=== PATIENT | male | born 1990 | race Caucasian/White ===

== ENCOUNTER → 2016-05-25 | Outpatient (CLI) | payer OTHER ==
--- NOTE | 2016-05-25 12:58 | RAD ---
Indication injury. Pain. AP oblique and lateral views of the left elbow were obtained. No bony abnormality is seen
== END | disposition home or self-care (01) ==
LOC: DXRADRC 10:20
PROVIDERS: ATTEND General Practice
DX: S50.02XA Contusion of left elbow, initial encounter (principal); X58.XXXA Exposure to other specified factors, initial encounter; Y93.89 Activity, other specified; Y92.89 Other specified places as the place of occurrence of the external cause; Y99.8 Other external cause status
CPT/HCPCS: 73080

== ENCOUNTER → 2017-07-27 | Outpatient (CLI) | payer OTHER ==
--- NOTE | 2017-07-27 09:37 | RAD ---
Chest, 2 views, 07/27/2017: HISTORY: Fever and cough The heart size is normal. There is moderate right parahilar infiltrate extending into the upper lobe. The left lung is clear. There is no evidence of pleural fluid. IMPRESSION: Moderate right upper lobe infiltrate suggesting pneumonia. Electronically signed by: Yeison Keenan MD (07/27/2017 9:34 AM) [facility]
== END | disposition home or self-care (01) ==
LOC: PMG 09:18
PROVIDERS: ATTEND Physician Assistant Medical
DX: R91.8 Other nonspecific abnormal finding of lung field (principal)
CPT/HCPCS: 71046

== ENCOUNTER → 2018-04-26 | Outpatient (CLI) | payer BC, OTHER ==
--- NOTE | 2018-04-26 15:39 | RAD ---
Indication: Abdominal pain for one week TECHNIQUE: Multiple AP views of the abdomen and pelvis COMPARISON: None FINDINGS: Visualized lung bases are clear. The contours of the solid abdominal organs are within normal limits. No abnormally dilated bowel loops or air-fluid levels. No abnormal calcific densities projecting over the kidneys to suggest apparent renal stones. No suspicious bony lesion. No significant colonic stool burden. IMPRESSION: No acute findings. Electronically signed by: Olman Holland DO (04/26/2018 3:36 PM) [facility]
== END | disposition home or self-care (01) ==
LOC: RAD 11:02
PROVIDERS: ATTEND Physician Assistant
DX: R10.9 Unspecified abdominal pain (principal)
CPT/HCPCS: 74021

== ENCOUNTER → 2018-12-02 | Outpatient (CLI) | payer BC ==
--- NOTE | 2018-12-02 15:27 | RAD ---
EXAM: Left foot, 3 views. HISTORY: Lateral pain. COMPARISON: None. FINDINGS: 3 views of the left foot are obtained. There is no fracture, dislocation or subluxation. There is a suspected bone island within the distal aspect of the first proximal phalanx. IMPRESSION: No acute osseous finding. Electronically signed by: Renea Fernandez MD (12/02/2018 3:24 PM) [facility]
== END | disposition home or self-care (01) ==
LOC: DRLUCOB 13:18
PROVIDERS: ATTEND Nurse Practitioner Family
DX: M79.672 Pain in left foot (principal)
CPT/HCPCS: 73630

== ENCOUNTER 2020-03-11 14:06 | Emergency (ER) | payer BC, OTHER ==
[~2020-03-11] VITALS: Ht 182.9 cm; Wt 98.0 kg
[2020-03-11 14:18] VITALS: BP 151/84
--- NOTE | 2020-03-11 14:41 | PHYS DOC ---
Past History Past Medical History: No Pertinent History (KARIME MACIAS APRN) Alcohol Use: Heavy (KARIME MACIAS APRN) General Adult EDM: Chief Complaint: FOOT INJURY PAIN HPI: HPI: Patient is a male who presents with left foot pain. Patient states "I stepped off a pruitt at work, and I immediately had pain in my left foot". Patient denies any known injury. Patient is able to ambulate. Patient states that he took ibuprofen this morning before work is not taking anything since the injury occurred. Denies any health history. (KARIME MACIAS APRN) Review of Systems: Review of Systems: Respiratory: Denies cough or shortness of breath Cardiovascular: Denies chest pain or edema Musculoskeletal: Denies back pain or joint pain Integument: Denies rash Psychiatric: Denies depression or anxiety (KARIME MACIAS APRN) Allergies: Allergies: Allergies Coded Allergies Type Severity Reaction Last Updated Verified No Known Drug Allergies 03/11/20 No (KARIME MACIAS APRN) Physical Exam: PE: Constitutional: Well developed, well nourished, no acute distress, non-toxic appearance. [] Cardiovascular:Heart rate regular rhythm, no murmur [ Lungs & Thorax: Bilateral breath sounds clear to auscultation [] Skin: Warm, dry, no erythema, no rash. [] Back: No tenderness, no CVA tenderness. [] Extremities: Left heel tenderness, ROM intact, no edema. [] Psychologic: Affect normal, judgement normal, mood normal. [] (KARIME MACIAS APRN) Current Patient Data: Vital Signs: Vital Signs Date Time Temp Pulse Resp B/P (MAP) Pulse Ox O2 Delivery O2 Flow Rate FiO2 03/11/20 14:18 97.6 93 16 151/84 (106) 98 Room Air (KARIME MACIAS APRN) EKG: EKG: [] (KARIME MACIAS APRN) Radiology/Procedures: Radiology/Procedures: [] (KARIME MACIAS APRN) Heart Score: Risk Factors: Risk Factors: DM, Current or recent (<one month) smoker, HTN, HLP, family history of CAD, obesity. Risk Scores: Score 0 - 3: 2.5% MACE over next 6 weeks - Discharge Home Score 4 - 6: 20.3% MACE over next 6 weeks - Admit for Clinical Observation Score 7 - 10: 72.7% MACE over next 6 weeks - Early Invasive Strategies (KARIME MACIAS APRN) Course & Med Decision Making: Course & Med Decision Making Pertinent Labs and Imaging studies reviewed. (See chart for details) []Patient is a male who presents with left foot pain. Patient states "I stepped off a pruitt at work, and I immediately had pain in my left foot". Patient denies any known injury. Patient is able to ambulate. Patient states that he took ibuprofen this morning before work is not taking anything since the injury occurred. Denies any health history. X-ray of left foot ordered. Tenderness is to patient's heel. No swelling noted. Patient has full range of motion. Patient ambulated into the emergency room. Patient denies any known injury. Patient requesting ibuprofen for pain control. Straight foot is negative for fracture. Will have patient rest, elevate, ice and apply an jim bandage to ankle for support. Ibuprofen and Tylenol at home for pain. (KARIME MACIAS APRN) Dragon Disclaimer: Ethan Disclaimer: This electronic medical record was generated, in whole or in part, using a voice recognition dictation system. (KARIME MACIAS APRN) Departure Departure: Impression: Primary Impression: Foot pain Qualified Codes: M79.672 - Pain in left foot Disposition: 01 DC HOME SELF CARE/HOMELESS Condition: GOOD Referrals: BERTHA MCDANIEL (PCP) Patient Instructions: Foot Contusion Additional Instructions: You are seen in the emergency room today for left foot pain. X-ray was negative for fracture. You can apply ice, Jim wrap, elevate and rest at home. Please take ibuprofen and Tylenol at home for discomfort. Please return to the emergency room for worsening symptoms or concerns. Otherwise follow-up with your primary care physician if symptoms do not resolve. EMERGENCY DEPARTMENT GENERAL DISCHARGE INSTRUCTIONS Thank you for coming to [facility] (ED) today and trusting us with you care. We trust that you had a positivie experience in our Emergency Department. If you wish to speak to the department management, you may call the director at [phone]. YOUR FOLLOW UP INSTRUCTIONS ARE FOLLOWS: 1. Do you have a private Doctor? If you do not have a private doctor, please ask for a resource list of physicians or clinics that may be able to assist you with follow up care. 2. The Emergency Physician has interpreted your x-rays. The X-Ray specialist will also review them. If there is a change in the findings, you will be notified in 48 hours when at all possible. 3. A lab test or culture has been done, your results will be reviewed and you will be notified if you need a change in treatment. ADDITIONAL INSTRUCTIONS AND INFORMATION: 1. Your care today has been supervised by a physician who is specially trained in emergency care. Many problems require more than one evaluation for a complete diagnosis and treatment. We recommend that you schedule your follow up appointment as recommended to ensure complete treatment of you illness or injury. If you are unable to obtain follow up care and continue to have a problem, or if your condition worsens, we recommend that you return to the ED. 2. We are not able to safely determine your condition over the phone nor are we able to give sound medical advice over the phone. For these safety reasons, if you call for medical advice we will ask you to come to the ED for further evaluation. 3. If you have any questions regarding these discharge instructions please call the ED at [phone]. SAFETY INFORMATION: In the interest of safety, wellness, and injury prevention; we encourage you to wear your sealbelt, if you smoke; quite smoking, and we encourage family to use a protective helmet for bicycling and other sporting events that present an increased risk for head injury. IF YOUR SYMPTOMS WORSEN OR NEW SYMPTOMS DEVELOP, OR YOU HAVE CONCERNS ABOUT YOUR CONDITION; OR IF YOUR CONDITION WORSENS WHILE YOU ARE WAITING FOR YOUR FOLLOW UP APPOINTMENT; EITHER CONTACT YOUR PRIMARY CARE DOCTOR, THE PHYSICIAN WHOSE NAME AND NUMBER YOU WERE GIVEN, OR RETURN TO THE ED IMMEDIATELY. Attending Signature Attending Signature I have reviewed the PA/SHREDDING MACHINE TENDER's note and plan of care. I was available for consul tation as needed during the patient's visit in the emergency department. I agree with the clinical impression, plan, and disposition. (LENA RIVERA DO) KARIME MACIAS APRN Mar 11, 2020 14:41 LENA RIVERA DO Mar 12, 2020 00:29
[2020-03-11] MEDS ORDERED: IBUPROFEN 600 MG TABLET. PO ONE (14:45)
--- NOTE | 2020-03-11 15:23 | RAD ---
XR FOOT_LEFT 3 VIEWS DATE: 03/11/2020 2:40 PM INDICATION: Reason: pain / Spl. Instructions: / History: COMPARISON: None. FINDINGS: Bones: There is no evidence of acute fracture or dislocation. Joints: The joint spaces are normal. Miscellaneous: None. IMPRESSION: No evidence of acute fracture. Electronically signed by: Boris Holloway MD (03/11/2020 3:21 PM) [facility]
== END 2020-03-11 15:27 | disposition home or self-care (01) ==
LOC: ER 14:06
DX: M79.672 Pain in left foot (principal); F10.20 Alcohol dependence, uncomplicated; Y90.9 Presence of alcohol in blood, level not specified; X58.XXXA Exposure to other specified factors, initial encounter; Y93.89 Activity, other specified; Y92.89 Other specified places as the place of occurrence of the external cause; Y99.8 Other external cause status
CPT/HCPCS: 73630; 99283

== ENCOUNTER 2020-04-11 16:49 | Emergency (ER) | payer OTHER ==
[~2020-04-11] VITALS: Ht 182.9 cm; Wt 100.0 kg
[2020-04-11 16:49] VITALS: BP 147/76
[2020-04-11] MEDS ORDERED: NAPROXEN 500 MG TABLET PO ONE (17:00)
[2020-04-11] MEDS ORDERED: HYDROcodone/APAP 5/325MG 1 TAB TABLET PO ONE (17:00)
--- NOTE | 2020-04-11 17:15 | RAD ---
Exam: Right ankle 3 views INDICATION: Rolled ankle pain TECHNIQUE: Frontal, lateral and oblique views of the right Comparisons: None FINDINGS: Soft tissue swelling along the anterior aspect of the ankle. Bone mineralization is normal. No acute or healed fractures. Joint spaces are well-maintained. IMPRESSION: Soft tissue swelling at the anterior ankle without underlying osseous abnormality. Electronically signed by: Justyna Quinonez MD (04/11/2020 5:13 PM) [facility]
[2020-04-11] MEDS ORDERED: NAPR-514 PO (17:36)
[2020-04-11] MEDS ORDERED: HYDR-2759 PO (17:36)
--- NOTE | 2020-04-11 17:36 | PHYS DOC ---
Past History Past Medical History: No Pertinent History Past Surgical History: No Surgical History Alcohol Use: Occasionally Adult General Chief Complaint Chief Complaint: LOWEREXTREMITY INJURY HPI HPI Patient is a 29-year-old male patient presented to the ED today complaining of moderate pain and swelling to the right ankle that began today after an injury today. Patient states he was stepping out of his truck and stepped on some rocks and rolled his right ankle. Patient describes the pain as sharp and constant worse on weightbearing. Review of Systems Review of Systems Constitutional: Denies fever or chills [] Musculoskeletal: Reports right ankle pain Integument: Denies rash or skin lesions [] Neurologic: Denies headache, focal weakness or sensory changes [] All other systems were reviewed and found to be within normal limits, except as documented in this note. Current Medications Current Medications Current Medications Medications (Trade) Dose Ordered Sig/Jo Start Time Stop Time Status Last Admin Dose Admin Acetaminophen/ Hydrocodone Bitart (Lortab 5/325) 2 tab 1X ONCE 04/11/20 17:00 04/11/20 17:01 DC 04/11/20 17:11 2 TAB Naproxen (Naprosyn) 500 mg 1X ONCE 04/11/20 17:00 04/11/20 17:01 DC 04/11/20 17:11 500 MG Allergies Allergies Allergies Coded Allergies Type Severity Reaction Last Updated Verified No Known Drug Allergies 03/11/20 No Physical Exam Physical Exam Constitutional: Well developed, well nourished, no acute distress, non-toxic appearance. [] Skin: Warm, dry, no erythema, no rash. [] Back: No tenderness, no CVA tenderness. [] Extremities: Moderate swelling to the right lateral ankle with pain and tenderness on palpation. Full range of motion to the right ankle and foot as well as toes. +2 right pedal pulse. Cap refill less than 2 seconds to right toes. Neurologic: Alert and oriented X 3, normal motor function, normal sensory function, no focal deficits noted. [] Psychologic: Affect normal, judgement normal, mood normal. [] Current Patient Data Vital Signs Vital Signs Date Time Temp Pulse Resp B/P (MAP) Pulse Ox O2 Delivery O2 Flow Rate FiO2 04/11/20 17:11 18 04/11/20 16:49 98.2 78 147/76 (99) 100 Room Air EKG EKG [] Radiology/Procedures Radiology/Procedures []PROCEDURE: ANKLE RIGHT 3V Exam: Right ankle 3 views INDICATION: Rolled ankle pain TECHNIQUE: Frontal, lateral and oblique views of the right Comparisons: None FINDINGS: Soft tissue swelling along the anterior aspect of the ankle. Bone mineralization is normal. No acute or healed fractures. Joint spaces are well-maintained. IMPRESSION: Soft tissue swelling at the anterior ankle without underlying osseous abnormality. Electronically signed by: Justyna Butt MD (04/11/2020 5:13 PM) [facility] DICTATED AND SIGNED BY: JUSTYNA BUTT MD DATE: 04/11/20 8055 CC: BERTHA MCDANIEL; SERGIO YATES REC THERAPIST ~MTH0 0 Heart Score Risk Factors: Risk Factors: DM, Current or recent (<one month) smoker, HTN, HLP, family history of CAD, obesity. Risk Scores: Risk Factors: DM, Current or recent (<one month) smoker, HTN, HLP, family history of CAD, obesity. Course & Med Decision Making Course & Med Decision Making Pertinent Labs and Imaging studies reviewed. (See chart for details) This is a 29-year-old male patient presented to the ED today with right ankle pain that began after he rolled his ankle today. Right ankle x-rays interpreted by radiologist are negative for any acute findings, noted for soft tissue swelling. Jim wrap and Aircast applied to the right ankle by the ED RN, nancy urovascular exam is intact. Ice elevation encouraged. Provided orthopedic doctor for follow-up. Dragon Disclaimer Dragon Disclaimer This electronic medical record was generated, in whole or in part, using a voice recognition dictation system. Departure Departure: Impression: Primary Impression: Right ankle sprain Disposition: 01 DC HOME SELF CARE/HOMELESS Condition: STABLE Referrals: BERTHA MCDANIEL (PCP) MARKIE SPICER MD follow up in 1-2 weeks Patient Instructions: Ankle Sprain Additional Instructions: You have right ankle sprain. Your right ankle x-rays were negative for any acute findings. Try to ice and elevate the extremity. Follow-up with the provided orthopedic doctor in 1 week if pain persist. Come back to the ED at any point symptoms worsen Scripts Hydrocodone/Acetaminophen (Hydrocodone-Acetamin 5-325 mg) 1 Each Tablet 1 EACH PO Q6HRS for pain, #20 TAB Prov: SERGIO YATES APRN 04/11/20 Naproxen (NAPROXEN) 500 Mg Tablet 1 TAB PO BID for pain, #30 TAB Prov: SERGIO YATES APRN 04/11/20 Problem Qualifiers Primary Impression: Right ankle sprain Encounter type: initial encounter Involved ligament of ankle: unspecified ligament Qualified Codes: S93.401A - Sprain of unspecified ligament of right ankle, initial encounter SERGIO YATES APRN Apr 11, 2020 17:36
== END 2020-04-11 17:55 | disposition home or self-care (01) ==
LOC: ER 16:49
DX: S93.401A Sprain of unspecified ligament of right ankle, initial encounter (principal); X50.9XXA Other and unspecified overexertion or strenuous movements or postures, initial encounter; Y93.89 Activity, other specified; Y92.89 Other specified places as the place of occurrence of the external cause; Y99.8 Other external cause status
CPT/HCPCS: 29515; 73610; 99283